=== PATIENT | female | born 1965 | race Caucasian/White ===

== ENCOUNTER 2017-12-01 18:52 | Outpatient (CLI) | payer OTHER | END 2017-12-01 18:53 | disposition EMS.NT | LOC: EMS 18:52 | PROVIDERS: ATTEND Surgery | DX: Z04.1 Encounter for examination and observation following transport accident (principal); V53.5XXA Driver of pick-up truck or van injured in collision with car, pick-up truck or van in traffic accident, initial encounter; Y92.413 State road as the place of occurrence of the external cause ==

== ENCOUNTER 2018-03-16 08:57 | Outpatient (CLI) | payer OTHER ==
--- NOTE | 2018-03-17 11:02 | Mammography Report ---
BILATERAL SCREENING MAMMOGRAM WITH IMPLANTS: 03/16/2018 COMPARISON: 11/02/2009, 09/08/2008 and 09/03/2007. TECHNIQUE: Bilateral digital CC and MLO projections with additional implant displaced views. FINDINGS: There are scattered fibroglandular densities. There is no dominant mass, suspicious microcalcifications, skin thickening, architectural distortion or interval change. Implants appears similar to previous. IMPRESSION: NEGATIVE. BI-RADS CODE 1-NEGATIVE. SUGGEST RETURN TO ROUTINE SCREENING IN 12 MONTHS. STANDARD QUALIFYING STATEMENTS: 1. This examination was reviewed with the aid of Computer-Aided Detection (CAD) . 2. A negative or benign imaging report should not delay biopsy if clinically suspicious findings are present. Consider surgical consultation if warranted. More than 5 % of cancers are not identified by imaging. 3. Dense breasts may obscure an underlying neoplasm. TD: 03/17/2018 09:56 QUENTIN
== END 2018-03-16 08:58 | disposition home or self-care (01) ==
LOC: DI.S 08:57
PROVIDERS: ATTEND Nurse Practitioner Family
DX: Z12.31 Encounter for screening mammogram for malignant neoplasm of breast (principal)
CPT/HCPCS: 77067

== ENCOUNTER 2018-03-29 11:59 | Outpatient (CLI) | payer OTHER ==
[2018-03-29 17:59] LABS: BASOPHILS # (AUTO) 0.1 10^3/uL (0.0-0.1); EOSINOPHILS # (AUTO) 0.9 10^3/uL (0.0-0.7); EOSINOPHILS % (AUTO) 11.4 %; HGB - HEMOGLOBIN 12.3 g/dL (12.0-16.0); LYMPHOCYTES # (AUTO) 2.9 10^3/uL (1.5-3.5); LYMPHOCYTES % (AUTO) 38.9 %; MEAN CORPUSCULAR HEMOGLOBIN 30.6 pg (27.0-31.0); MEAN CORPUSCULAR HGB CONC 32.9 g/dL (32.0-36.0); MEAN CORPUSCULAR VOLUME 93.2 fL (81.0-99.0); MEAN PLATELET VOLUME 7.9 fL (7.9-10.8); MONOCYTES # (AUTO) 0.8 10^3/uL (0.0-1.0); MONOCYTES % (AUTO) 10.1 %; NEUTROPHILS # (AUTO) 2.9 10^3/uL (1.5-6.6); NEUTROPHILS % (AUTO) 38.6 %; PLT - PLATELET COUNT 350 10^3/uL (130-450); RED CELL DISTRIBUTION WIDTH 13.9 % (12.0-15.0); WHITE BLOOD COUNT 7.6 x10^3/uL (4.8-10.8)
[2018-03-29 18:30] LABS: THYROID STIMULATING HORMONE 3.94 uIU/mL (0.34-5.60)
[2018-03-29 18:32] LABS: CALCIUM 9.1 mg/dL (8.5-10.3); CREATININE 0.8 mg/dL (0.4-1.0)
[2018-03-29 18:38] LABS: FERRITIN 27.6 ng/mL (11.0-306.8)
[2018-03-29 18:41] LABS: FOLATE 12.88 ng/mL (5.90 - >24.8)
[2018-03-30 13:02] LABS: HEPATITIS C ANTIBODY NON-REACTIVE (NON-REACTIVE)
[2018-03-30 13:16] LABS: HIV AG/AB 4TH GEN NON-REACTIVE (NON-REACTIVE)
== END 2018-03-29 12:00 | disposition home or self-care (01) ==
LOC: LAB.S 11:59
PROVIDERS: ATTEND Nurse Practitioner Family
DX: I10 Essential (primary) hypertension (principal); Z98.84 Bariatric surgery status; Z13.29 Encounter for screening for other suspected endocrine disorder; Z11.3 Encounter for screening for infections with a predominantly sexual mode of transmission
CPT/HCPCS: 36415; 80048; 81599; 82607; 82728; 82746; 83540; 84443; 84466; 85025; 86592; 86803; 87389

== ENCOUNTER 2018-04-01 09:06 | Outpatient (CLI) | payer OTHER ==
--- NOTE | 2018-04-01 16:07 | XRAY Report ---
Procedure Date: 04/01/2018 Accession Number: [id number] / [id number] Procedure: XRS - Finger(s) LT CPT Code: FULL RESULT: EXAM: Left ring finger CLINICAL HISTORY: LOCALIZED SWELLING ON LEFT 4TH FINGER COMPARISON: None. TECHNIQUE: 3 views. FINDINGS: Bones: No fracture or bone lesion. Joints: PIP joint is narrowed. Subluxation not excluded. DIP joint well maintained. Soft Tissues: Moderate soft tissue swelling PIP joint. No radiopaque foreign body. IMPRESSION: Moderate left fourth PIP joint soft tissue swelling with degenerative change of the joint space. Joint alignment assessment limited due to positioning.
== END 2018-04-01 09:07 | disposition home or self-care (01) ==
LOC: DI.S 09:06
PROVIDERS: ATTEND Nurse Practitioner Family
DX: M19.042 Primary osteoarthritis, left hand (principal); M25.442 Effusion, left hand
CPT/HCPCS: 73140

== ENCOUNTER 2018-05-17 09:57 | Day surgery (SDC) | payer OTHER ==
[2018-05-17] MEDS ORDERED: LACTATED RINGERS 1,000 ML IV ONE ×2 (10:05→12:24)
[2018-05-17] MEDS ORDERED: fentaNYL 250 MCG/5 ML VIAL IVP ONE (11:11)
[2018-05-17] MEDS ORDERED: MIDAZOLAM 2 MG/2 ML VIAL IVP ONE (11:11)
[2018-05-17] MEDS ORDERED: PROPOFOL 200 MG/20 ML VIAL IVP ONE (12:30)
[2018-05-17 13:38] VITALS: BP 149/85
== END 2018-05-17 09:58 | disposition home or self-care (01) ==
LOC: SDS 09:57
PROVIDERS: ATTEND Surgery
PROC: 0DBP8ZZ Excision of Rectum, Via Natural or Artificial Opening Endoscopic (ICD-10-PCS; principal; 2018-05-17 10:30)
DX: R19.5 Other fecal abnormalities (principal); K62.1 Rectal polyp; K64.8 Other hemorrhoids; I10 Essential (primary) hypertension; F17.210 Nicotine dependence, cigarettes, uncomplicated; J45.909 Unspecified asthma, uncomplicated
CPT/HCPCS: 45385; J3010; J7120

== ENCOUNTER 2018-08-18 06:20 | Day surgery (SDC) | payer OTHER ==
[2018-08-18] MEDS ORDERED: ceFAZolin 2 GM/50 ML 2 GM/50 ML BAG IV ONE (06:28)
[2018-08-18] MEDS ORDERED: LACTATED RINGERS 1,000 ML IV ONE ×2 (07:00→08:41)
--- NOTE | 2018-08-18 07:05 | ANESTHESIA ---
Pre-Anesthesia VS, & Labs - Diagnosis right rotator cuff tear, subacromial impingement, bursitis, biceps tendonitis - Procedure shoulder arthroscopy with rotator cuff repair , right subacromial decompression, possible biceps tenolysis Vital Signs: Temp Pulse Resp BP Pulse Ox 36.1 C L 74 16 135/85 H 99 08/18/18 06:35 08/18/18 06:35 08/18/18 06:35 08/18/18 06:35 08/18/18 06:35 Height 5 ft 9 in Weight (kg) 65 kg - NPO >8 hours - Is Patient ?: Not Applicable - Lab Results Lab results reviewed: Yes Home Medications and Allergies Albuterol Sulf [Ventolin Hfa Inhaler] 2 puffs PO Q4HR 05/17/18 Cyclobenzaprine [Flexeril] 10 mg PO TID PRN 05/17/18 Fluticasone [Flonase] 2 spray SHANICE DAILY 05/17/18 Venlafaxine HCl [Venlafaxine HCl ER] 150 mg PO DAILY 05/17/18 Allergies/Adverse Reactions: Allergies Allergy/AdvReac Type Severity Reaction Status Date / Time adhesive tape Allergy Unknown Verified 05/17/18 09:40 Penicillins Allergy Nausea Verified 08/18/18 07:02 Anes History & Medical History - Anesthetic History Family history of Malignant Hyperthermia: Denies - Medical History Cardiovascular: reports: Hypertension Smoking Status: Light tobacco smoker Psychosocial: reports: Depression - Surgical History General: Cholecystectomy Gynecologic: Tubal ligation Exam General: Alert, Oriented x3, Cooperative Dental: Partials Lower Mouth Openin Fingerbreadth Neck Mobility: Normal Mallampati classification: II Thyromental Distance: greater than 6 cm Respiratory: Lungs clear, Normal breath sounds, No respiratory distress, No accessory muscle use Cardiovascular: Regular rate, Normal S1, Normal S2, No murmurs Mental/Cognitive Status: Alert/Oriented X3, Normal for patient Cognitive Status: Within normal limits Plan Anesthesia Type: General Regional Block: Per Surgeon's request for Post Op pain control Consent for Procedure(s) Verified and Reviewed: Yes Code Status: Attempt Resuscitation ASA classification: 2-Mild systemic disease Is this case an emergency?: No
[2018-08-18] MEDS ORDERED: EPINEPHrine 1 MG/ML AMP ONE (07:45)
[2018-08-18] MEDS ORDERED: BUPIVACAINE 0.25%-EPI 1:200000 PF 30 ML VIAL ONE (08:35)
[2018-08-18] MEDS ORDERED: BUPIVACAINE 0.25%-EPI 1:200000 PF 30 ML VIAL SUBQ ONE ×2 (08:43)
[2018-08-18] MEDS ORDERED: DEXAMETHASONE 4 MG/ML VIAL IVP ONE (09:03)
[2018-08-18] MEDS ORDERED: fentaNYL 100 MCG/2 ML VIAL IVP ONE (09:03)
[2018-08-18] MEDS ORDERED: ePHEDrine 50 MG/ML VIAL IVP ONE (09:03)
[2018-08-18] MEDS ORDERED: ONDANSETRON 4 MG/2 ML VIAL IVP ONE (09:03)
[2018-08-18] MEDS ORDERED: ROPIVACAINE 0.5% PF 20 ML VIAL EPI ONE (09:03)
[2018-08-18] MEDS ORDERED: ROCURONIUM 50 MG/5 ML VIAL IVP ONE (09:03)
[2018-08-18] MEDS ORDERED: PROPOFOL 200 MG/20 ML VIAL IVP ONE (09:03)
[2018-08-18] MEDS ORDERED: MIDAZOLAM 2 MG/2 ML VIAL IVP ONE (09:03)
--- NOTE | 2018-08-18 10:21 | IMMEDIATE POSTOPERATIVE NOTE ---
Immediate Postoperative Note - Procedure Note Procedure Date: 08/18/18 Pre-Op Diagnosis: RIGHT ROTATOR CUFF TEAR, CHAVA, LH BICEPS INJURY Procedure: R SHOULDER SCOPE ROTATOR CUFF REPAIR, SA DECOMPRESSION, LH BICEPS TENODESIS Post-Op Diagnosis: SAME Primary Surgeon: ANT Ceramic Saw Tender: FELIPE Anesthesia Type: General LMA, Local, Regional block Findings: ABOVE Estimated Blood Loss (in cc): 25 Plan of Care: Patient tolerated procedure well instrument and sponge counts correct patient was transferred to the recovery room in stable condition. Patient will follow standard postoperative right shoulder rotator cuff repair protocol. She would have her abduction sling in place. She would avoid active shoulder motion. She would avoid active elbow flexion. She would avoid weightbearing right upper extremity. She would be encouraged to move her wrist and hand but not to flex the elbow actively. The dressings would stay clean dry and intact. She will follow-up in 10-14 days or sooner in the orthopedic clinic as needed.
[2018-08-18] MEDS: HYDROmorphone 1 MG/ML CARPUJECT ONE ×4 (10:23→10:57)
[2018-08-18] MEDS ORDERED: oxyCODONE 5 MG TABLET PO PRN (10:25)
[2018-08-18] MEDS ORDERED: ONDANSETRON 4 MG/2 ML VIAL IVP PRN (10:25)
[2018-08-18] MEDS ORDERED: ACETAMINOPHEN 325 MG TABLET PO ONE (10:51)
[2018-08-18] MEDS ORDERED: LORazepam 2 MG/ML VIAL ONE (11:06)
[2018-08-18 12:37] VITALS: BP 127/84
--- NOTE | 2018-08-18 12:40 | OPERATIVE REPORT ---
DATE OF SERVICE: 08/18/2018 Physician: Elijah Pratt MD PREOPERATIVE DIAGNOSES 1. Right shoulder rotator cuff tear. 2. Right shoulder subacromial impingement and bursitis. 3. Right shoulder long head biceps injury. POSTOPERATIVE DIAGNOSES 1. Right shoulder rotator cuff tear. 2. Right shoulder subacromial impingement and bursitis. 3. Right shoulder long head biceps injury. PROCEDURES PERFORMED 1. Right shoulder arthroscopic rotator cuff repair. 2. Right shoulder arthroscopic subacromial decompression, right shoulder. 3. Right shoulder arthroscopic long head biceps tenodesis. HISTORY OF PRESENT ILLNESS AND INDICATION: The patient is a 53-year-old female who works in [employer] and injured her rotator cuff. She was indicated for operative treatment. Please see prev ious clinic discussions for risks, benefits, alternatives of operative and nonoperative treatment. T hese are again highlighted in the preoperative care unit. Her questions are answered. She verbalize d a wish to proceed with operative treatment. Informed consent was again given. INTRAOPERATIVE FINDINGS: Patient is noted to have a full-thickness supraspinatus tear, minimal tendi nosis of adjacent tendons, but no other full-thickness or high-grade partial-thickness rotator cuff i njury. Long head biceps showed significant flattening and partial tearing. Subacromial space shows downslope of the anterior aspect of the acromion, converted to type-1 post-procedure and subacromial bursal inflammation and thickness. Post-fixation of the rotator cuff. There is near anatomic positi on of the rotator cuff to the footprint with good integrity of the repair with motion of the shoulder . There is good fixation of the long head biceps in the long head biceps groove, and the acromion is converted to a type-1 acromion. ORTHOPEDIC IMPLANTS 1. Arthrex 5.5 BioComposite SwiveLock. 2. Arthrex 5.5 BioComposite triple-loaded anchors x2. PREOPERATIVE ANTIBIOTICS: Weight-based IV Ancef. FLUIDS: 1200 mL of lactated Ringer's. ANESTHESIA TYPE: Interscalene block, as well as LMA general anesthesia, as well as 10 mL of 0.25% Ma rcaine with epinephrine local. ESTIMATED BLOOD LOSS: Less than 25 mL. COMPRESSION DEVICE: Bilateral calf SCD boots. ANESTHESIOLOGIST: Yessenia Ty CRNA. INTRAOPERATIVE COMPLICATIONS: None noted. PROCEDURE: On 08/18/2018, patient was identified in the preoperative care unit. She identifies the right shoulder as the operative site. This is signed. She is given preoperative weight-based IV ant ibiotics. She is brought to the operating room; this is all after interscalene block administered by anesthesia team. Patient is then given general LMA anesthesia, placed left side down in the lateral decubitus position with appropriately placed axillary roll to avoid encumbrance of the axilla. Mcdonald bag positioner is well placed. Down leg is gel padded. SCD boots are in place. There are pillows i n between both legs. Bony prominences are well padded. Head, neck, and extremity are placed in lemuel omically comfortable and safe positions, to avoid peripheral nerve stretch and compression. At this point, right upper extremity is draped out and then prescrubbed with chlorhexidine solution and then prepped and draped in the usual sterile fashion and ultimately placed in an arm epstein with 10 pounds of traction. At this point, surgical pause identifies right shoulder as the operative site. At thi s point, local anesthesia is infused anteriorly, posteriorly, and laterally. A small incision is mad e posteriorly. Scope is introduced into the glenohumeral joint. Diagnostic arthroscopy is carried o nj. In general, rotator cuff tear is noted in the supraspinatus and tendinosis elsewhere. Biceps in jury as above. Chondromalacia of the glenohumeral joint. After releasing of the biceps through an a nterior portal site using arthroscopic scissors, the labrum was debrided and then attention was direc morenita towards the subacromial space. At this point, lateral incision is made. Shaver is used to decompress bursal tissue. Arthroscopic E den device with appropriate flow to avoid iatrogenic injury is used. Coracoacromial ligament is elev ated, and then the bur is used to debride the anterior aspect of the acromion to convert to type-1 ac romion. At this point, the rotator cuff footprint is then debrided using a bur to debride soft tissu es to a freshly bleeding bone, but to leave the integrity of the cortex there. The edge of the rotat or cuff is debrided sharply using a meniscal basket. The biceps is available at this view, and as dewey ch an arthroscopic biceps tenodesis is planned. At this point, the biceps groove is roughened up usi ng the bur. The biceps is captured using a #2 FiberWire and appropriate section of biceps is removed , such that, once fixed to the biceps groove, that the muscle tendon unit would be appropriate length . At this point, the planned insertion site for the SwiveLock device is set. A reamer is used to de bride a partial-thickness layer of bone here, so that the tip of the biceps could fit into this. Ult imately, the punch and tap are used, and then the tip of the biceps tendon is placed into this hole, followed by fixation using a 5.5 SwiveLock device with the #2 FiberWire also being held in place by t tra SwiveLock device, per protocol. Excess suture limbs are cut. Additional suture from the anchor i s placed through the very anterior portion of the rotator cuff for additional fixation there, and a s imple suture is tied there. At this point, 2 sequential anchors are placed in the rotator cuff footp rint, and 5 simple sutures and 1 posterior horizontal mattress suture are placed using Scorpion devic e, tied sequentially in reverse order, thereby reopposing the rotator cuff to the near anatomic footp rint. These are all tied. Suture limbs are appropriately cut. The probe is used to confirm appropr iate placement of the cuff and appropriate fixation. The shoulder is ranged and noted to be with goo d fixation. Subacromial space is irrigated and evacuated. Local anesthetic is infused. At this poi nt, instruments are removed. Arthroscopic portals are closed using interrupted nylon suture. Skin i s washed and dried. Xeroform dressing is applied. Dry sterile dressing is applied. An ABD pad is a pplied. Micropore tape is applied. Patient is placed in abduction pillow sling. Patient tolerated the procedure well. Instrument and sponge counts correct. Patient is ultimately t ransferred to the recovery room in stable condition. Patient will follow standard postoperative right shoulder rotator cuff and the long head biceps tenod esis protocol, should avoid active shoulder range of motion, should avoid weightbearing right upper e xtremity, should avoid active elbow flexion. She will stay in the abduction pillow sling and keep he r dressings clean, dry, and intact. We plan on seeing her in 10-14 days or sooner should problems or questions arise. Postoperative instructions previously reviewed with her. Attempts were made to contact son, natalie perera, in the waiting area. Patient will be given perioperative medications, including analgesic medication and 24-hour periopera tive antibiotic orally. She denies any contraindication to medications. Plan to use them as directe d. She will notify us prior to the 10-14 day followup should problems or questions or worsening of h er condition arise. TD: 08/18/2018 11:15
== END 2018-08-18 06:21 | disposition home or self-care (01) ==
LOC: SDS 06:20
PROVIDERS: ATTEND Orthopaedic Surgery Sports Medicine
PROC: 0RHJ44Z Insertion of Internal Fixation Device into Right Shoulder Joint, Percutaneous Endoscopic Approach (ICD-10-PCS; 2018-08-18)
PROC: 0LS14ZZ Reposition Right Shoulder Tendon, Percutaneous Endoscopic Approach (ICD-10-PCS; 2018-08-18)
PROC: 0RNJ4ZZ Release Right Shoulder Joint, Percutaneous Endoscopic Approach (ICD-10-PCS; 2018-08-18)
PROC: 0LM14ZZ Reattachment of Right Shoulder Tendon, Percutaneous Endoscopic Approach (ICD-10-PCS; principal; 2018-08-18 07:30)
DX: M75.121 Complete rotator cuff tear or rupture of right shoulder, not specified as traumatic (principal); M75.41 Impingement syndrome of right shoulder; M75.21 Bicipital tendinitis, right shoulder; M75.51 Bursitis of right shoulder; I10 Essential (primary) hypertension; F17.201 Nicotine dependence, unspecified, in remission; F32.9 Major depressive disorder, single episode, unspecified; F10.21 Alcohol dependence, in remission; F41.8 Other specified anxiety disorders; R56.9 Unspecified convulsions; Z79.51 Long term (current) use of inhaled steroids; Z98.84 Bariatric surgery status
CPT/HCPCS: 29826; 29827; 29828; A9270; C1713; J0690; J1170; J2060; J2795; J7120

== ENCOUNTER 2018-08-19 00:40 | Emergency (ER) | payer OTHER ==
[2018-08-19] MEDS ORDERED: HYDROmorphone 1 MG/ML CARPUJECT IM STA ×2 (01:14→02:14)
[2018-08-19] MEDS ORDERED: diazePAM 5 MG TABLET PO STA (01:14)
[2018-08-19] MEDS ORDERED: KETOROLAC 15 MG/ML VIAL IM STA (01:14)
--- NOTE | 2018-08-19 01:21 | ED Physician Documentation ---
History of Present Illness - Stated complaint Stated Complaint: R SHOULDER PX/POST OP - Chief complaint Chief Complaint: Ext Problem - Additonal information Additional information: 53-year-old female presents the emergency department with complaints of shoulder pain which started after her nerve block wore off. The patient had shoulder surgery yesterday morning, around 6 PM once the nerve block wore off the patient developed significant throbbing. The patient had no improvement with the oral medications that were given. No other associated symptoms. No radiation of symptoms. Review of Systems Constitutional: denies: Fever Eyes: denies: Discharge Ears: denies: Ear pain Cardiac: denies: Chest pain / pressure Respiratory: denies: Dyspnea Musculoskeletal: reports: Extremity pain, Joint pain Immunocompromised: denies: Chemotherapy PD PAST MEDICAL HISTORY - Past Medical History Cardiovascular: Hypertension Psych: Depression, Anxiety - Past Surgical History General: Cholecystectomy /INTERNAL MEDICINE DOCTOR: Tubal ligation - Present Medications Home Medications: Ambulatory Orders Medication Instructions Recorded Confirmed Albuterol Sulf [Ventolin Hfa 2 puffs PO Q4HR 05/17/18 05/17/18 Inhaler] Cyclobenzaprine [Flexeril] 10 mg PO TID PRN 05/17/18 05/17/18 Fluticasone [Flonase] 2 spray SHANICE DAILY 05/17/18 05/17/18 Venlafaxine HCl [Venlafaxine HCl 150 mg PO DAILY 05/17/18 05/17/18 ER] - Allergies Allergies/Adverse Reactions: Allergies Allergy/AdvReac Type Severity Reaction Status Date / Time adhesive tape Allergy Unknown Verified 08/19/18 01:00 Penicillins Allergy Nausea Verified 08/19/18 01:00 - Social History Smoking Status: Light tobacco smoker PD ED PE NORMAL - General General: Alert and oriented X 3 - HEENT HEENT: Atraumatic, PERRL, EOMI, Ears normal - Cardiac Cardiac: RRR - Respiratory Respiratory: No respiratory distress, Clear bilaterally - Derm Derm: Normal color - Extremities Extremities: Other (The patient's right shoulder is in immobilizer, there is no erythema or significant swelling. The patient has a normal radial pulse and brisk cap refill.) - Neuro Neuro: Alert and oriented X 3, Normal speech - Psych Psych: Normal affect Results - Vitals Vitals: Vital Signs - 24 hr 08/19/18 00:56 Temperature 36.6 C Heart Rate 93 Respiratory 22 Rate Blood Pressure 165/95 H O2 Saturation 99 Oxygen O2 Source Room air PD MEDICAL DECISION MAKING - ED course ED course: The patient's pain has been controlled in the emergency department, her pain seems to be secondary to postoperative pain. Currently, the patient appears appropriate for discharge and ongoing outpatient management. I discussed with her the findings and plan and she understands and agrees. The patient will follow up with her orthopedic surgeon tomorrow for ongoing pain management. Departure - Departure Disposition: 01 Home, Self Care Clinical Impression: Post-operative pain Condition: Good Instructions: Pain Manage Meds Ch, ED Acute Pain [facility] Follow-Up: Elijah Pratt MD [Provider Admit Priv/Credential] - Tomorrow Comments: Please return to the emergency department for worsening symptoms or any concerns.
[2018-08-19 02:47] VITALS: BP 153/84
== END 2018-08-19 02:47 | disposition home or self-care (01) ==
LOC: ED 00:40
DX: G89.18 Other acute postprocedural pain (principal); M25.511 Pain in right shoulder; I10 Essential (primary) hypertension; F17.200 Nicotine dependence, unspecified, uncomplicated
CPT/HCPCS: 96372; 99283; A9270; J1170

== ENCOUNTER 2019-08-16 08:00 | Outpatient (CLI) | payer OTHER | END 2019-08-16 23:59 | disposition home or self-care (01) | LOC: LAB.R 08:00 | PROVIDERS: ATTEND Registered Nurse | DX: R30.0 Dysuria (principal) | CPT/HCPCS: 87086; 87181 ==

== ENCOUNTER 2019-09-05 14:01 | Outpatient (CLI) | payer OTHER ==
[2019-09-05 18:43] LABS: THYROID STIMULATING HORMONE 1.85 uIU/mL (0.34-5.60)
[2019-09-05 19:10] LABS: FOLLICLE STIMULATING HORMONE 92.88 mIU/mL
[2019-09-05 19:11] LABS: LUTEINIZING HORMONE 40.59 mIU/mL
== END 2019-09-05 14:02 | disposition home or self-care (01) ==
LOC: LAB.S 14:01
PROVIDERS: ATTEND Physician Assistant Medical
DX: N95.1 Menopausal and female climacteric states (principal); F32.9 Major depressive disorder, single episode, unspecified; F41.9 Anxiety disorder, unspecified; R30.0 Dysuria
CPT/HCPCS: 36415; 82670; 83001; 83002; 84443; 87086

== ENCOUNTER 2019-12-08 15:27 | Outpatient (CLI) | payer OTHER ==
[2019-12-08 17:20] LABS: BASOPHILS # (AUTO) 0.1 10^3/uL (0.0-0.1); BASOPHILS % (AUTO) 0.8 %; EOSINOPHILS # (AUTO) 0.5 10^3/uL (0.0-0.7); EOSINOPHILS % (AUTO) 7.5 %; HGB - HEMOGLOBIN 9.4 g/dL (12.0-16.0); LYMPHOCYTES # (AUTO) 2.1 10^3/uL (1.5-3.5); MEAN CORPUSCULAR HEMOGLOBIN 25.8 pg (27.0-31.0); MEAN CORPUSCULAR HGB CONC 30.3 g/dL (32.0-36.0); MEAN CORPUSCULAR VOLUME 85.2 fL (81.0-99.0); MEAN PLATELET VOLUME 9.2 fL (7.9-10.8); MONOCYTES # (AUTO) 0.7 10^3/uL (0.0-1.0); MONOCYTES % (AUTO) 10.5 %; NEUTROPHILS # (AUTO) 3.1 10^3/uL (1.5-6.6); NEUTROPHILS % (AUTO) 48.7 %; PLT - PLATELET COUNT 480 10^3/uL (130-450); RED BLOOD COUNT 3.64 10^6/uL (4.20-5.40); WHITE BLOOD COUNT 6.4 x10^3/uL (4.8-10.8)
[2019-12-08 17:48] LABS: ALBUMIN 3.3 g/dL (3.2-5.5); ALBUMIN/GLOBULIN RATIO 0.9 (1.0-2.2); BILIRUBIN,TOTAL 0.2 mg/dL (0.2-1.0); CALCIUM 8.4 mg/dL (8.5-10.3); CREATININE 0.8 mg/dL (0.4-1.0); TOTAL PROTEIN 6.8 g/dL (6.7-8.2)
[2019-12-08 18:04] LABS: FOLATE 9.27 ng/mL (5.90 - >24.8)
== END 2019-12-08 15:28 | disposition home or self-care (01) ==
LOC: LAB.S 15:27
PROVIDERS: ATTEND Physician Assistant Medical
DX: E56.9 Vitamin deficiency, unspecified (principal); Z98.84 Bariatric surgery status
CPT/HCPCS: 36415; 80053; 82306; 82607; 82728; 82746; 83540; 84466; 85025